=== PATIENT | female | born 2000 | race Caucasian/White ===

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

== ENCOUNTER 2024-04-30 15:44 | Emergency (ER) | payer BC ==
--- OUTSIDE RECORDS SUMMARY | 2024-04-30 15:47 | XMS REPORT | Continuity of Care Document ---
Author Name Unknown Address [address] [place] [address] [address]inder. [address] [place] [address] [facility] Address [address] [place] [address] Gurinder. [address] [place] [address] Care Team Providers Care Talent Partner Name Role Phone Unavailable Unavailable Unavailable Encounters Start Date/Time End Date/Time Encounter Type Admission Type Attending [facility] Facility Care Department Encounter ID Source 2023-07-18 16:45:57 2023-07-18 16:45:57 Outpatient SFA SFA [id number] Kamran F Ramy 2023-06-13 16:57:21 2023-06-13 16:57:21 Outpatient SFA SFA [id number] Kamran Tee Ramy 2023-05-04 16:23:59 2023-05-04 16:23:59 Outpatient SFA SFA [id number] Kamran F Ramy 2023-04-13 17:13:57 2023-04-13 17:13:57 Outpatient SFA SFA [id number] Kamran Mccann
[2024-04-30] MEDS ORDERED: NA CHLORIDE 0.9% 1,000 ML ONE (16:36)
--- NOTE | 2024-04-30 16:57 | RAD REPORT ---
EXAM: Chest Single View HISTORY: 23 years Female CHEST PAIN COMPARISON: None. FINDINGS: LUNGS/PLEURA: The lungs are clear. No pleural effusions or pneumothorax. No pulmonary edema. CARDIAC/MEDIASTINUM: The cardiac silhouette is within normal limits. UPPER ABDOMEN: No significant abnormality. BONES: No acute abnormality. LINES/TUBES/OTHER: N/A IMPRESSION: No evidence of acute cardiopulmonary disease.
[2024-04-30 17:02] LABS: Absolute Eosinophils 0.1 K/uL (0-0.5); Absolute Lymphocytes (CBC) 2.5 K/uL (0.7-4.9); Absolute Monocytes 0.6 K/uL (0.1-1.3); Absolute Neutrophil 5.1 K/uL (1.8-8.0); Basophils % 0.4 % (0-1.3); Hematocrit 33.2 % (36.0-45.0); Hemoglobin 10.6 g/dL (12.0-15.0); Lymphocytes % 29.8 % (15.3-44.8); MCH 21.3 pg (27.0-35.0); MCHC 31.9 g/dL (32.0-36.0); MCV 66.9 fL (80-100); MPV 7.3 fL (7.6-11.3); Monocytes % 7.3 % (3.3-12.3); Neutrophils % 61.5 % (41.7-73.7); Platelets 401 thou/uL (152-406); RBC Red Blood Cell Count 4.96 M/uL (3.86-4.86); Red Cell Distribution Width 16.8 % (12.1-15.2)
[2024-04-30 17:12] LABS: Blood Morphology Comment NOTED (NOT SEEN); Hypochromasia 1+; Microcytosis 1+; Platelet Estimate ADEQ; White Blood Cell Scan OK (OK)
[2024-04-30 17:15] LABS: ALT/SGPT 37 U/L (13-56); AST/SGOT 22 U/L (15-37); Albumin 3.7 g/dL (3.4-5.0); Albumin/Globulin Ratio 0.9 (1.1-1.8); Alkaline Phosphatase 63 U/L (45-117); Anion Gap 9.5 mEq/L (5.0-15.0); BUN Blood Urea Nitrogen 13 mg/dL (7-18); Bicarbonate 26 mEq/L (21-32); Bilirubin Total 0.5 mg/dL (0.2-1.0); Globulin 3.9 g/dL (2.3-3.5); Glomerular Filtration Rate 98 ml/min (=/>90); Glucose Level 105 mg/dL (74-106); Magnesium 1.8 mg/dL (1.6-2.4); Potassium 3.5 mEq/L (3.5-5.1); Protein, Total 7.6 g/dL (6.4-8.2); Sodium Level 137 mEq/L (136-145); Troponin High Sensitivity 3.1 pg/mL (<58.9)
[2024-04-30 17:18] LABS: Bilirubin Direct < 0.2 mg/dL (0-0.2); Bilirubin Indirect, Calculated 0.3 mg/dL (0.2-0.8)
--- NOTE | 2024-04-30 17:22 | RAD REPORT ---
EXAMINATION: Head Brain Wo Cont CLINICAL INDICATION: Female, 23 years old.NUMBNESS TECHNIQUE: Axial CT images from the skull base to the vertex without intravenous contrast. Coronal an d sagittal reformatted images were created from the data set. One or more of the following dose reduction techniques were used: Automated exposure control, adjustment of the mA and/or kV according to patient size, and/or iterative reconstruction. Unless otherwise specified, incidental findings do not require dedicated imaging follow-up. [id number]. COMPARISON: No prior exam. FINDINGS: INTRACRANIAL: No acute intracranial hemorrhage. No hydrocephalus. No mass effect or midline shift. No significant white matter disease. VASCULATURE: No visualized abnormalities in the arteries or dural venous sinuses. SCALP/SKULL: No calvarial fracture identified. No acute soft tissue abnormality. SINUSES: The visualized paranasal sinuses are mostly clear. No significant mastoid fluid. IMPRESSION: No acute intracranial abnormality.
--- NOTE | 2024-04-30 17:50 | ER ---
Nurse's Notes [facility] Name: Beata Pennington Age: 23 yrs Sex: Female : 2000 Arrival Date: 04/30/2024 Time: 15:44 Bed 27 Private MD: Diagnosis: Iron deficiency anemia, unspecified;Elevated blood-pressure reading, without diagnosis of hypertension Presentation: 04/30 16:09 Chief complaint: Patient states: Over the last week she has been having blurred vision, cm10 numbness to her face, tongue and hand. pt also reports having chest pain. Coronavirus screen: Client denies travel out of the [place] in the last 14 days. Ebola Screen: No symptoms or risks identified at this time. Initial Sepsis Screen: Does the patient meet any 2 criteria? HR > 90 bpm. Does the patient have a suspected source of infection? No. Patient's initial sepsis screen is negative. Risk Assessment: Do you want to hurt yourself or someone else? Patient reports no desire to harm self or others. Onset of symptoms is unknown. 16:09 Method Of Arrival: Ambulatory cm10 16:09 Acuity: ESDRAS 3 cm10 Triage Assessment: 16:10 Headache History: The patient has had previous headaches and this one is similar to bp previous episodes. Pain: Pain currently is 3 out of 10 on a pain scale. Pain began 1 day ago. Also complains of no other associated symptoms. 16:10 EENT: No deficits noted. Cardiovascular: No deficits noted. Respiratory: No deficits bp noted. GI: No signs and/or symptoms were reported involving the gastrointestinal system. : No signs and/or symptoms were reported regarding the genitourinary system. Derm: No deficits noted. Musculoskeletal: No deficits noted. 16:11 General: Appears in no apparent distress. comfortable, Behavior is calm, cooperative. cm10 Neuro: No deficits noted. Level of Consciousness is awake, alert, obeys commands, Oriented to person, place, time, situation, Appropriate for age. 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 - Infectious Disease History:: Denies. - Social history:: Smoking status: Patient denies any tobacco usage or history of. Screenin:10 [facility] ED Fall Risk Assessment (Adult) History of falling in the last 3 months, bp including since admission No falls in past 3 months (0 pts) Confusion or Disorientation No (0 pts) Intoxicated or Sedated No (0 pts) Impaired Gait No (0 pts) Mobility Assist Device Used No (0 pt) Altered Elimination No (0 pt) Score/Fall Risk Level 0 - 2 = Low Risk Oriented to surroundings. Abuse screen: Denies threats or abuse. Denies injuries from another. Nutritional screening: No deficits noted. Tuberculosis screening: No symptoms or risk factors identified. Assessment: 16:10 General: Appears in no apparent distress. obese, Behavior is cooperative, appropriate bp for age, anxious. Pain: Complains of pain in chest. Vital Signs: 16:09 BP 157 / 97; Pulse 116; Resp 17; Temp 98.6; Pulse Ox 100% ; Weight 113.4 kg; Height 5 cm10 ft. 8 in. ; Pain 4/10; 18:08 BP 135 / 69; Pulse 79; Resp 15; Temp 98; Pulse Ox 100% ; bp 16:09 Body Mass Index 38.01 (113.40 kg, 172.72 cm) cm10 16:09 Pain Scale: Adult cm10 ED Course: 15:50 Patient arrived in ED. al6 15:51 [facility] Miller [facility]. sb4 15:51 Piyush Lauren MD is Attending Physician. sb4 16:01 Stalin Donovan, RN is Primary Nurse. bp 16:10 Triage completed. cm10 16:10 Patient has correct armband on for positive identification. bp 16:11 Arm band placed on right wrist. Patient placed in an exam room, on a stretcher. cm10 16:45 Initial lab(s) drawn, by me, sent to lab. Urine collected: clean catch specimen, clear, bp EKG done, by ED staff, reviewed by Adina Miller PA-C. Inserted saline lock: 22 gauge in right antecubital area, using aseptic technique. Blood collected. Flushed with 10 mL NS. 16:54 XRAY Chest (1 view) In Process Unspecified. EDMS 17:04 Test, Serum Sent. ty 17:12 Head Brain Wo Cont CT In Process Unspecified. EDMS 18:08 No provider procedures requiring assistance completed. IV discontinued, intact, bp bleeding controlled, No redness/swelling at site. Pressure dressing applied. Administered Medications: 16:45 Drug: NS 0.9% IV 1000 ml IV at 1 bolus Per protocol; to be given as a bolus over 60 bp minutes Route: IV; Rate: 1 bolus; Site: right antecubital; 18:09 Follow up: IV Status: Completed infusion bp Medication: 16:10 VIS not applicable for this client. bp Outcome: 17:49 Discharge ordered by MD. sanz 18:08 Discharged to home ambulatory, with friend, bp 18:08 Condition: stable 18:08 Discharge instructions given to patient, Instructed on discharge instructions, follow up and referral plans. medication usage, Demonstrated understanding of instructions, follow-up care, medications, Prescriptions given X 1, 18:10 Patient left the ED. bp Signatures: Dispatcher [employer] EDMA Stalin Donovan RN RN bp Adina Miller, PA-C PA-C sb4 Jennifer Swann, RN RN cm10 Tank Jamil Alissa al6
--- NOTE | 2024-04-30 17:50 | EDPHYS ---
Physician Documentation [facility] Name: Beata Pennington Age: 23 yrs Sex: Female : 2000 Arrival Date: 04/30/2024 Time: 15:44 Bed 27 Private MD: ED Physician Piyush Lauren HPI: 04/30 16:37 This 23 yrs old Female presents to ER via Ambulatory with complaints of Numbness Of sb4 Mouth, Numbness Of Hand, Headache. 17:57 Patient states that she has been experiencing vague symptoms today. States that she sb4 felt like she had a headache and was lightheaded. Later she felt like her lips were numb and was having weird pains in her lower extremities. Additionally, she states that throughout this past week she has been having some pains in her chest. She denies any URI symptoms. Denies any medical history or daily medications. Denies any increase in stress. 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 - Infectious Disease History:: Denies. - Social history:: Smoking status: Patient denies any tobacco usage or history of. ROS: 17:57 Constitutional: Negative for fever, chills, and weight loss, sb4 17:57 Neuro: Positive for headache, numbness, tingling, Lightheadedness, 17:57 All other systems are negative, Exam: 17:57 Constitutional: This is a well developed, well nourished patient who is awake, alert, sb4 and in no acute distress. Head/Face: Normocephalic, atraumatic. Eyes: Extra-ocular motions intact. Periorbital areas with no swelling, redness, or edema. ENT: Mucous membranes moist. Cardiovascular: Regular rate and rhythm with a normal S1 and S2. Respiratory: No increased work of breathing, no retractions or nasal flaring. Abdomen/GI: Soft, non-tender, no distension. Skin: Warm, dry with normal turgor. Normal color with no rashes, no lesions, and no evidence of cellulitis. MS/ Extremity: Pulses equal, no cyanosis. Neurovascular intact. Full, normal range of motion. Neuro: Awake and alert, GCS 15, oriented to person, place, time, and situation. Motor strength 5/5 in all extremities. Sensory grossly intact. Vital Signs: 16:09 BP 157 / 97; Pulse 116; Resp 17; Temp 98.6; Pulse Ox 100% ; Weight 113.4 kg; Height 5 cm10 ft. 8 in. ; Pain 4/10; 18:08 BP 135 / 69; Pulse 79; Resp 15; Temp 98; Pulse Ox 100% ; bp 16:09 Body Mass Index 38.01 (113.40 kg, 172.72 cm) cm10 16:09 Pain Scale: Adult cm10 MDM: 15:56 Medical Screening Exam initiated sb4 17:49 Data reviewed: vital signs, nurses notes, lab test result(s), EKG, radiologic studies, sb4 and as a result, I will discharge patient. Counseling: I had a detailed discussion with the patient and/or guardian regarding the historical points, exam findings, and any diagnostic results supporting the discharge/admit diagnosis, the presence of at least one elevated blood pressure reading (>120/80) during this emergency department visit, lab results, radiology results, the need for outpatient follow up, for definitive care, to return to the emergency department if symptoms worsen or persist or if there are any questions or concerns that arise at home. 04/30 16:09 Order name: Basic Metabolic Panel; Complete Time: 17:34 sb4 04/30 16:09 Order name: CBC with Diff; Complete Time: 17:34 sb4 04/30 16:09 Order name: LFT's; Complete Time: 17:34 sb4 04/30 16:09 Order name: Magnesium; Complete Time: 17:34 sb4 04/30 16:09 Order name: Troponin HS; Complete Time: 17:34 sb4 04/30 16:09 Order name: Test, Serum; Complete Time: 17:34 sb4 04/30 17:12 Order name: CBC Smear Scan; Complete Time: 17:34 EDMS 04/30 16:09 Order name: XRAY Chest (1 view); Complete Time: 16:58 sb4 04/30 16:09 Order name: Head Brain Wo Cont CT; Complete Time: 17:34 sb4 04/30 16:09 Order name: EKG; Complete Time: 16:09 sb4 04/30 16:09 Order name: Cardiac monitoring; Complete Time: 16:10 sb4 04/30 16:09 Order name: EKG - Nurse/Tech; Complete Time: 16:45 sb4 04/30 16:09 Order name: IV Saline Lock; Complete Time: 16:45 sb4 04/30 16:09 Order name: Labs collected and sent; Complete Time: 16:45 sb4 04/30 16:09 Order name: O2 Per Protocol; Complete Time: 16:10 sb4 04/30 16:09 Order name: O2 Sat Monitoring; Complete Time: 16:10 sb4 EC:23 Rate is 86 beats/min. Rhythm is regular, Normal Sinus Rhythm. ND interval is normal at sb4 120 msec. QRS interval is normal at 94 msec. QT interval is normal at 338 msec. No Q waves. T waves are Normal. No ST changes noted. Clinical impression: Normal ECG. Interpreted by me. Reviewed by me. Administered Medications: 16:45 Drug: NS 0.9% IV 1000 ml IV at 1 bolus Per protocol; to be given as a bolus over 60 bp minutes Route: IV; Rate: 1 bolus; Site: right antecubital; 18:09 Follow up: IV Status: Completed infusion bp Disposition Summary: 04/30/24 17:49 Discharge Ordered Notes: Location: Home sb4 Problem: new sb4 Symptoms: have improved sb4 Condition: Stable sb4 Diagnosis - Iron deficiency anemia, unspecified sb4 - Elevated blood-pressure reading, without diagnosis of hypertension sb4 Followup: sb4 - With: Private Physician - When: 1 week - Reason: Recheck today's complaints, Continuance of care, Re-evaluation by your physician Discharge Instructions: - Discharge Summary Sheet sb4 - Iron Deficiency Anemia, Adult sb4 - How to Take Your Blood Pressure, [id number] sb4 Forms: - Work release form bp - Patient Portal Instructions sb4 - Leadership Thank You Letter sb4 Prescriptions: - Ferrous Sulfate 325 mg (65 mg Iron) Oral tablet - take 1 tablet ORAL route once daily; 30 tablet; Refills: 0, Product Selection sb4 Permitted Signatures: Dispatcher [facility] Stalin Gore RN RN Adina Elizabeth PA-C PA-C sb4 Jennifer Swann RN RN cm10 Corrections: (The following items were deleted from the chart) 16:10 16:09 BASIC METABOLIC PANEL+C.LAB.BRZ ordered. EDMS EDMS 16:10 16:09 CBC+H.LAB.BRZ ordered. EDMS EDMS 16:10 16:09 HEPATIC FUNCTION+C.LAB.BRZ ordered. EDMS EDMS 16:10 16:09 MAGNESIUM+C.LAB.BRZ ordered. EDMS EDMS 16:10 16:09 Troponin High Sensitivity+C.LAB.BRZ ordered. EDMS EDMS 16:10 16:09 TEST, SERUM+SC.LAB.BRZ ordered. EDMS EDMS
[2024-04-30 23:28] VITALS: O2SAT 100
[2024-04-30 23:29] VITALS: BP 135/69; TEMP 98
== END 2024-04-30 18:10 | disposition home or self-care (01) ==
LOC: ER 15:44
DX: D50.9 Iron deficiency anemia, unspecified (principal); R03.0 Elevated blood-pressure reading, without diagnosis of hypertension
CPT/HCPCS: 85025; 80048; 36415; 83735; 84703; 80076; 84484; 70450; 71045; J7030; 93005